=== PATIENT | male | born 1965 | race Caucasian/White ===

== ENCOUNTER → 2017-08-16 | Outpatient (CLI) | payer OTHER ==
[~2017-08-16] MED LIST: FLEXERIL5 MG PO; MOTRIN 800800 MG/TAB PO; NO HOME MEDICATIONS; [UNRECOGNIZED DRUG - OTHER]
== END ==
LOC: COL.PUL 10:26
DX: Z02.71 Encounter for disability determination (principal); M47.894 Other spondylosis, thoracic region

== ENCOUNTER 2023-08-19 22:59 | Emergency (ER) | payer SELFPAY ==
[~2023-08-19] VITALS: Ht 182.9 cm; Wt 72.7 kg
[2023-08-19 23:30] VITALS: TEMP 98.1
[2023-08-20 01:15] LABS: BASO % 0.4 % (0.0-2.0); EOS # 0.1 K/mm3 (0.0-0.7); EOS % 1.3 % (0.0-4.0); GRAN # 6.2 K/mm3 (1.4-6.5); GRAN % 66.2 % (42.2-75.2); HEMATOCRIT 40.5 % (42.0-52.0); HEMOGLOBIN 12.9 g/dl (13.5-18.0); LYMPH # 2.2 K/mm3 (1.2-3.4); LYMPH % 23.6 % (20.0-51.0); MEAN CELL VOLUME 88 fl (80.0-100.0); MEAN CORPUSCULAR HEMOGLOBIN 28 pg (27-31); MEAN CORPUSCULAR HGB CONC 32 g/dl (33.0-37.0); MEAN PLATELET VOLUME 8.4 fl (7.4-10.4); MONO # 0.8 K/mm3 (0.1-0.6); MONO % 8.2 % (1.7-9.3); PLATELET COUNT 360 K/mm3 (130-400); RED BLOOD COUNT 4.58 M/mm3 (4.20-5.60); REDCELL DISTRIBUTION WIDTH-CV 14.1 % (11.5-14.5)
[2023-08-20 01:41] LABS: ALBUMIN 3.6 g/dL (3.5-5.0); BILIRUBIN,TOTAL 0.3 mg/dL (0.2-1.2); C-REACTIVE PROTEIN 0.6 mg/dL (0.00-0.50); CALCIUM 9.3 mg/dL (8.4-10.2); CREATININE, serum 0.97 mg/dL (0.72-1.25); POTASSIUM 3.9 mEq/L (3.5-4.5); TOTAL PROTEIN 6.7 g/dl (6.2-8.1)
[2023-08-20] MEDS ORDERED: CEPHALEXIN500 M1 PO (01:57)
[2023-08-20] MEDS ORDERED: ALEVE 220MG220 MG PO (01:57)
[2023-08-20] MEDS ORDERED: ceFAZolin 1 G in Water For Injection,Sterile 10 ML IV ONE (02:00)
[2023-08-20] MEDS ORDERED: Ketorolac 15 MG/ML VIAL IV ONE (02:00)
[2023-08-20 02:45] VITALS: BP 131/66; PULSE 83
== END 2023-08-20 02:47 | disposition home or self-care (01) ==
LOC: COL.ER 22:59
PROVIDERS: Emergency Medicine
DX: L03.116 Cellulitis of left lower limb (principal); L03.115 Cellulitis of right lower limb; F17.210 Nicotine dependence, cigarettes, uncomplicated
CPT/HCPCS: J0690; J1885